=== PATIENT | male | born 1955 | race Caucasian/White ===

== ENCOUNTER 2016-11-20 17:31 | Emergency (ER) | payer OTHER ==
--- NOTE | 2016-11-20 17:41 | EDPHY ---
HPI/HX/ROS/PE/MDM Narrative: CHIEF COMPLAINT: Visual disturbances in left eye. 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 He describes seeing flashes of light in his left eye when he looks to the left. He also describes a large number of red floaters in his vision. He denies eye trauma, eye pain. He denies right eye complaints. He did have bilateral laser surgery in July to help reduce scarring from his cataract surgery. REVIEW OF SYSTEMS: Aside from elements discussed in the HPI, a comprehensive 10-point review of systems was reviewed and is negative. PMH: Hypercholesterolemia, hypothyroidism. 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 PHYSICAL EXAM: General:Patient is alert, in no acute distress. ENT:Eyes are normal to inspection. ENT inspection normal. Left eye: anterior chamber clear. Pupil is 2mm, reactive. Neck: Normal inspection. Full range of motion. Respiratory:No respiratory distress. Breath sounds normal bilaterally. Cardiovascular: Regular rate and rhythm. Strong peripheral pulses. Normal cap refill. Abdomen:The abdomen is nontender to palpation. There are no peritoneal signs. There are normal bowel sounds. Back: Normal to inspection. No tenderness to palpation. Skin: Normal color. No rash. Warm and dry. Extremities: Normal appearance. Full range of motion. Neuro: Oriented x3. Normal motor function. Normal sensory function. ED Course: 1825: Consulted with Dr. Álvarez, ophthalmology. He recommends the patient follow up with an barge worker in the morning. General Time Seen by Provider: 11/20/16 17:40 Initial Vital Signs: Initial Vital Signs Temperature (C) 36.5 C 11/20/16 17:31 Heart Rate 68 11/20/16 17:31 Respiratory Rate 16 11/20/16 17:31 Blood Pressure 145/85 H 11/20/16 17:31 O2 Sat (%) 98 11/20/16 17:31 O2 Delivery Mode Room Air Allergies/Adverse Reactions: latex Allergy (Mild, Verified 11/20/16 17:45) Rash Home Medications: Medication Instructions Recorded Aspirin [Aspirin 81mg (*)] 81 mg PO DAILY 11/20/16 Atorvastatin Calcium [Lipitor 40 40 mg PO 11/20/16 mg (*)] Levothyroxine [Synthroid 100 mcg 100 mcg PO DAILY06 11/20/16 (*)] Departure - Departure Disposition: Home, Routine, Self-Care Clinical Impression: Visual floaters Qualifiers: Laterality: left Qualified Code(s): H43.392 - Other vitreous opacities, left eye Condition: Good Instructions: Visual Floaters (ED) Additional Instructions: Call Dr. Parra tomorrow morning to set up a follow up appointment. Return to the ED for any serious worsening of condition. Referrals: Saji Mancia MD [Primary Care Provider] - As per Instructions Markus Parra MD [Medical Doctor] - As per Instructions Report Scribed for: Stephen Novak Report Scribed by: Chris Johnson Date of Report: 11/20/16 Time of Report: 17:58 Physician Review and Approval Statement: Portions of this note were transcribed by a nuclear medical technologist. I personally performed a history, physical exam, medical decision making, and confirmed accuracy of information the transcribed note.
[2016-11-20 19:07] VITALS: BP 141/76; PULSE 76; RESP 17; TEMP 98.8; O2SAT 95
== END 2016-11-20 18:50 | disposition home or self-care (01) ==
DX: H43.392 Other vitreous opacities, left eye (principal); Z91.040 Latex allergy status; Z79.82 Long term (current) use of aspirin

== ENCOUNTER → 2017-02-01 | Outpatient (CLI) | payer OTHER | LOC: CIMAGING 17:24 | PROVIDERS: ATTEND Otolaryngology | DX: K11.8 Other diseases of salivary glands (principal) | CPT/HCPCS: 76536-PO ==

== ENCOUNTER → 2018-03-06 | Outpatient (CLI) | payer OTHER | LOC: FIMAGING 16:08 | PROVIDERS: ATTEND Family Medicine | DX: M76.01 Gluteal tendinitis, right hip (principal) ==

== ENCOUNTER 2018-10-18 08:25 | Day surgery (SDC) | payer OTHER ==
[2018-10-18] MEDS ORDERED: BUPIVACAINE/EPI 0.5% 30 ML SDV ONE (08:29)
[2018-10-18] MEDS ORDERED: LIDOCAINE 1% 300 MG/30 ML SDV ONE (08:29)
[2018-10-18] MEDS ORDERED: levOFLOXACIN 500 MG/DEXTROSE 100 ML IV ONE (08:42)
[2018-10-18] MEDS ORDERED: LR 1,000 ML IV ONE (08:42)
[2018-10-18] MEDS ORDERED: LIDOCAINE 1% 2 ML INJ ID PRN (08:42)
[2018-10-18] MEDS ORDERED: oxyCODONE IR 5 MG TAB PO PRN (09:31)
[2018-10-18] MEDS ORDERED: NALOXONE HCL 0.4 MG/ML INJ IVP PRN (09:31)
[2018-10-18] MEDS ORDERED: ONDANSETRON 4 MG/2 ML VIAL IVP PRN (09:31)
[2018-10-18] MEDS ORDERED: HYDROmorphONE/DILAUDID 2 MG/ML INJ IVP PRN (09:31)
[2018-10-18] MEDS ORDERED: fentaNYL 100 MCG/2 ML INJ IVP PRN (09:31)
[2018-10-18] MEDS ORDERED: ACETAMINOPHEN 500 MG TAB PO PRN (09:31)
[2018-10-18] MEDS ORDERED: DEXAMETHASONE 4 MG/ML VIAL IVP PRN (09:31)
[2018-10-18] MEDS ORDERED: MIDAZOLAM 2 MG/2 ML VIAL IVP ONE (09:31)
[2018-10-18] MEDS ORDERED: ALBUTEROL 3 ML DEYVIAL IH PRN (09:31)
--- NOTE | 2018-10-18 09:33 | PDANEPAE ---
ANE History of Present Illness Prostate Biopsy ANE Past Medical History - Cardiovascular History Hx Hypertension: No Hx Arrhythmias: No Hx Chest Pain: No Hx Coronary Artery / Peripheral Vascular Disease: No Hx CHF / Valvular Disease: No Hx Palpitations: No Cardiovascular History Comment: HYPERLIPIDEMIA - Pulmonary History Hx COPD: No Hx Asthma/Reactive Airway Disease: Yes Hx Recent Upper Respiratory Infection: No Hx Oxygen in Use at Home: No Hx Sleep Apnea: No Sleep Apnea Screening Result - Last Documented: Positive Pulmonary History Comment: HX ASTHMA - NO INHALERS - Neurologic History Hx Cerebrovascular Accident: No Hx Seizures: No Hx Dementia: No - Endocrine History Hx Diabetes: No Endocrine History Comment: HYPOTHYROID - Renal History Hx Renal Disorders: No Renal History Comment: PROSTATE - Liver History Hx Hepatic Disorders: No - Neurological & Psychiatric Hx Hx Neurological and Psychiatric Disorders: No - Cancer History Hx Cancer: No - Congenital Disorder History Hx Congenital Disorders: No - GI History Hx Gastrointestinal Disorders: No - Other Health History Other Health History: NEG - Chronic Pain History Chronic Pain: No - Surgical History Prior Surgeries: NASAL. VASECTOMY. CATARACT. COLONOSCOPIES ANE Review of Systems Review of Systems: - Exercise capacity METS (RN): 5 METS ANE Patient History - Allergies Allergies/Adverse Reactions: latex Allergy (Mild, Verified 10/18/18 08:48) Rash - Home Medications Home Medications: Atorvastatin Calcium [Lipitor 40 mg (*)] 40 mg PO 11/20/16 [Last Taken 10/17/18 08:00] Levothyroxine [Synthroid 100 mcg (*)] 100 mcg PO DAILY06 11/20/16 [Last Taken 08:00] - Smoking Hx Smoking Status: Never smoked ANE Labs/Vital Signs - Vital Signs Height: 185.42 cm Weight: 92.986 kg ANE Physical Exam - Airway Neck exam: FROM Mallampati Score: Class 2 Mouth exam: normal dental/mouth exam - Pulmonary Pulmonary: reduced air movement - Cardiovascular Cardiovascular: regular rate and rhythym - ASA Status ASA Status: II ANE Anesthesia Plan Anesthesia Plan: GA w LMA
--- NOTE | 2018-10-18 09:39 | PDHPUP ---
History & Physical Update H&P update statement: This history and physical update is based on an assessment of the patient which was completed after admission or registration (within 24 hours), but prior to the surgery/procedure. H&P update: no change in patient's condition since H&P completed
--- NOTE | 2018-10-18 10:40 | POSTANESTH ---
Post Anesthetic Evaluation Cardiovascular Status: Normal, Stable Respiratory Status: Normal, Stable Level of Consciousness/Mental Status: Mildly Sleepy, Arousable Pain Control: Adequate, Prn Tx Ordered Nausea/Vomiting Control: Adequate, Prn Tx Ordered Complications Possibly Related to Anesthesia: None Noted
--- NOTE | 2018-10-18 10:41 | POSTOPPROG ---
Post Op Note Date of Operation: 10/18/18 Surgeon: Linda Mitchell (# [id number]) Anesthesia: LMA Pre-op Diagnosis: Elevated PSA Post-op Diagnosis: Elevated PSA Procedure: TRUS w/ MRI fusion prostate biopsies Findings: See op note Inf/Abcess present in the surg proc area at time of surgery?: No EBL: Minimal (0) Complications: None Specimen(s): Prostate biopsies x 18
[2018-10-18 12:55] VITALS: BP 130/84
--- NOTE | 2018-11-07 18:55 | GOP ---
[f rep st] OPERATIVE REPORT DATE OF OPERATION: 10/18/2018 SURGEON: Linda Mitchell MD ANESTHESIA: Laryngeal mask with local. PREOPERATIVE DIAGNOSIS: 1. Elevated PSA. 2. Abnormal prostate neoplasm of uncertain behavior. POSTOPERATIVE DIAGNOSIS: 1. Elevated PSA. 2. Abnormal prostate neoplasm of uncertain behavior. PROCEDURE PERFORMED: MRI and ultrasound fusion-guided transrectal prostate biopsies. FINDINGS: Right lateral base region of interest, as noted below.. SPECIMENS: Eighteen prostate biopsies, as detailed below.. ESTIMATED BLOOD LOSS: Minimal. INDICATIONS: This gentleman has had a slowly rising PSA and a recently noted abnormal area of interest within the prostate noted on MRI. As a result, the patient presents for operative assessment with transrectal biopsies and MRI fusion technology. The indications for the procedures, as well as potential risks and complications were discussed with the patient preoperatively. He appeared to understand, his questions were answered, and he wished to proceed. Written informed surgical consent was thereafter obtained. DESCRIPTION OF PROCEDURE: The patient was brought to the operating room and administered laryngeal mask anesthesia. He was kept on the operating room transfer gurney. He was placed in the [id number] lateral knee-chest decubitus position. He was properly, safely, and thoroughly secured to the table. I then brought the [employer] ultrasound machine onto the field to perform transrectal ultrasonography. Transrectal sonography was used to measure prostate dimensions which were as follows: Prostate height 27 mm, prostate width 44 mm, prostate length 40 mm, and prostate volume 24 cc. Using specialized software and equipment, I fused a series of contoured magnetic resonance images to the live ultrasound imaging. I then reviewed the images and reconstructed the images in a 3-dimensional space, looking for lesions and confirming the planned locations for biopsies to be obtained, as returned by the software and my real- time assessment. The reconstruction shows a fusion of the MRI and ultrasound imaging in order to determine optimal biopsy distribution and location. There was one specific area of interest in the peripheral aspect of the right base. This lesion was slightly potentially exophytic and near the margin of the base of the seminal vesicle. After incorporating my observation into the biopsy plan , the results of the images were used to guide the biopsy needle gun to obtain registration representative section biopsies through the prostate from various regions. The following regions were biopsied: Three biopsies from the right base region of interest, then 3 biopsies each from the right base, right mid gland, right apex , left base, left mid gland, and left apex. The biopsies from the region of interest were obtained with MR fusion technology while the other biopsies were obtained with conventional transrectal sonographic guidance. A total of 18 biopsies were collected, and these were sent to Pathology in standard fashion for permanent histologic examination. After completing the biopsy process, a total of 20 cc of 0.5% Marcaine with epinephrine was used to administer a local anesthetic in the form of a penile block. This completed the operative procedure. The ultrasound probe was removed. The patient was turned back over into the supine position on the gurney. He was awakened, transferred to his bed , and then taken to the recovery room. He tolerated the procedure well overall. COMPLICATIONS: None. DISPOSITION: The patient was transferred to the recovery room in stable condition. /[id number]/MODL MTDD
== END 2018-10-18 12:40 | disposition home or self-care (01) ==
LOC: FSGY 08:25
PROVIDERS: ATTEND Specialist
PROC: 0VB03ZX Excision of Prostate, Percutaneous Approach, Diagnostic (ICD-10-PCS; principal; 2018-10-18 09:30)
DX: R97.20 Elevated prostate specific antigen [PSA] (principal); D40.0 Neoplasm of uncertain behavior of prostate
CPT/HCPCS: J1956; J2250

== ENCOUNTER → 2018-11-02 | Outpatient (CLI) | payer OTHER | LOC: FIMAGING 09:04 | PROVIDERS: ATTEND Specialist | DX: C61 Malignant neoplasm of prostate (principal) | CPT/HCPCS: 78306; A9503 ==